=== PATIENT | male | born 1945 | race Caucasian/White ===

== ENCOUNTER 2017-08-21 13:18 | Inpatient (IN) | payer MEDICARE, BC ==
[~2017-08-21] VITALS: Ht 182.9 cm; Wt 74.4 kg
--- NOTE | 2017-08-21 13:22 | Emergency Room Report ---
History of Present Illness General Chief Complaint: Dizziness Source: Patient (Eddy Rowe) Present Illness HPI Patient is a 71-year-old male presented after increased generalized weakness and lightheadedness. Patient had recent hip replacement by Dr. Hernandez at [facility]. The procedures approximately 6 days ago. Patient was having increased generalized weakness as well as lightheadedness. This is worse with upright position.. Patient had been taking increased amounts of pain medications. Patient was noted to have increased dark stools. Prior history of gastric bypass as well as ulcerative colitis. He had recent endoscopy (Eddy Rowe) Allergies: Coded Allergies: DICLOXACILLIN (Verified Allergy, Unknown, 08/21/17) Gluten Flour (Verified Allergy, Unknown, 08/21/17) LACTOSE (Verified Allergy, Unknown, 08/21/17) Patient History Past Medical History: see triage record Reviewed Nursing Documentation: PMH: Agreed, PSxH: Agreed (Eddy Rowe) Nursing Documentation-PMH Hx Diabetes: Yes Hx Cancer: Yes - Prostate (Eddy Rowe) Review of Systems All Other Systems: negative except mentioned in HPI (Eddy Rowe) Physical Exam Sp02 EP Interpretation: reviewed, normal General Appearance: normal inspection, alert Head: atraumatic Eyes: bilateral eye conjunctivae pale ENT: normal ENT inspection, hearing grossly normal, normal voice Neck: normal inspection, full range of motion, supple, no bony tend Respiratory: normal inspection, lungs clear, normal breath sounds, no respiratory distress, no retraction, no wheezing Cardiovascular #1: regular rate, rhythm, no edema, JVD Gastrointestinal: normal inspection, normal bowel sounds, non tender, soft, no guarding, no hernia Rectal: heme positive stool - black stool Genitourinary: no CVA tenderness Musculoskeletal: back normal, decreased range of motion Neurologic: normal inspection, alert, oriented x3, responsive, 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 Not hypoxic. PLAN: IV access, labs, blood transfusion, GI consult Anticipate admission to Tele vs. JAKE CC time also includes review of labs, review of EMR, discussion with family and paperwork from SNF, d/w hospitalist CC could include dosing of pressors, additional Abx CC time does not include procedures (Malu Fall M.D.) Medical Decision Making Diagnostic Impression: Primary Impression: Upper GI bleed Additional Impressions: Dizziness Severe anemia S/P hip replacement History of prostate cancer History of gastric bypass ER Course Patient presented for generalized weakness. Differential diagnosis included was not limited to anemia, urinary tract infection, electrolyte abnormality, hypothyroidism, myocardial infarction, myasthenia gravis, dehydration, among others. Because of complexity of patient's case laboratory testing and imaging studies were ordered. EKG interpreted by me showed normal sinus rhythm without acute ST or T wave changes. The patient was noted to have skin pallor. He was noted to have guaiac positive black stool. Initial hemoglobin was 5.2. The patient was consented for blood. The patient's case was discussed with his primary care physician. Patient was endorsed to Dr. Fall for further management and final disposition. Labs Test 08/21/17 14:35 08/22/17 04:00 Differential Total Cells Counted 100 Neutrophils % (Manual) 84 % (45-75) Lymphocytes % (Manual) 12 % (20-45) Monocytes % (Manual) 3 % (1-10) Eosinophils % (Manual) 0 % (0-3) Basophils % (Manual) 0 % (0-2) Band Neutrophils 1 % (0-8) Platelet Estimate Increased Platelet Morphology Normal Polychromasia 1+ Hypochromasia 3+ Anisocytosis 2+ Microcytosis 2+ Prothrombin Time 10.3 SEC (9.30-11.50) Prothromb Time International Ratio 1.0 (0.9-1.1) Activated Partial Thromboplast Time 21 SEC (23-33) Urine Color Pale yellow Urine Appearance Clear Urine pH 7 (4.5-8.0) Urine Specific [place] 1.010 (1.005-1.035) Urine Protein Negative (NEGATIVE) Urine Glucose (UA) 4+ (NEGATIVE) Urine Ketones 2+ (NEGATIVE) Urine Occult Blood Negative (NEGATIVE) Urine Nitrite Negative (NEGATIVE) Urine Bilirubin Negative (NEGATIVE) Urine Urobilinogen Normal MG/DL (0.0-1.0) Urine Leukocyte Esterase Negative (NEGATIVE) Sodium Level 137 MMOL/L (136-145) Potassium Level 4.5 MMOL/L (3.5-5.1) Chloride Level 101 MMOL/L (98-107) Carbon Dioxide Level 27 MMOL/L (21-32) Anion Gap 9 mmol/L (5-15) Blood Urea Nitrogen 44 mg/dL (7-18) Creatinine 1.1 MG/DL (0.55-1.30) Estimat Glomerular Filtration Rate mL/min (>60) Glucose Level 179 MG/DL (74-106) Calcium Level 8.7 MG/DL (8.5-10.1) Total Bilirubin 0.3 MG/DL (0.2-1.0) Aspartate Amino Transf (AST/SGOT) 13 U/L (15-37) Alanine Aminotransferase (ALT/SGPT) 28 U/L (12-78) Alkaline Phosphatase 55 U/L (46-116) Troponin I 0.000 ng/mL (0.000-0.056) Pro-B-Type Natriuretic Peptide 218 pg/mL (0-125) Total Protein 6.2 G/DL (6.4-8.2) Albumin 3.0 G/DL (3.4-5.0) Globulin 3.2 g/dL Albumin/Globulin Ratio 0.9 (1.0-2.7) Lipase 118 U/L (73-393) White Blood Count 7.0 K/UL (4.8-10.8) Red Blood Count 2.70 M/UL (4.70-6.10) Hemoglobin 8.2 G/DL (14.2-18.0) Hematocrit 24.5 % (42.0-52.0) Mean Corpuscular Volume 91 FL (80-99) Mean Corpuscular Hemoglobin 30.4 PG (27.0-31.0) Mean Corpuscular Hemoglobin Concent 33.6 G/DL (32.0-36.0) Red Cell Distribution Width 14.3 % (11.6-14.8) Platelet Count 379 K/UL (150-450) Mean Platelet Volume 5.7 FL (6.5-10.1) Neutrophils (%) (Auto) 60.5 % (45.0-75.0) Lymphocytes (%) (Auto) 26.3 % (20.0-45.0) Monocytes (%) (Auto) 11.0 % (1.0-10.0) Eosinophils (%) (Auto) 1.4 % (0.0-3.0) Basophils (%) (Auto) 0.9 % (0.0-2.0) (Eddy Rowe) ER Course 71-year-old male, recent surgery to right hip, 2 days of dizziness, generalized weakness, inability to walk DDX: Vasovagal vs. orthostatic / hypovolemic/dehydration vs. cardiac arrhythmia (SVT , Afib) vs. cardiac (, ACS) vs. PE vs. metabolic versus infectious, UTI pneumonia versus medication overuse (Vicodin) Plan: bgm, cbc, bmp, ekg, cxr ER course: Patient has remained HD stable during ED stay hgb 5.5 noted, transfused 2 units prbcs in ED protonix given Dr Roldan from GI made aware of patient Disposition: Patient requires admission to telemetry. Patient requires further workup of syncopal episode, further lab testing, serial troponins, cardiac monitoring D/W hospitalist Dr Morales (covering for Dr Cintron), had accepted patient for admission Please note that this Emergency Department Report was dictated using [employer]wikwire[employer] nurse specialist technology software, occasionally this can lead to erroneous entry secondary to interpretation by the dictation equipment EKG Diagnostic Results EP Interpretation: Yes Rate: normal Rhythm: NSR ST Segments: No acute changes, no WPW, Brugada, QT prolongation ASA given to patient: No Rhythm Strip EP Interpretation: Yes Rate: 70 Rhythm: NSR, no PVCs, no ectopy Chest X-ray CXR: Ordered: Yes 1 view Indication: Weakness EP interpretation: Yes Interpretation: No consolidation, no effusion, no PTX, pacemaker noted to left chest Impression: No acute disease Electronically signed by Malu Fall MD Laboratory Tests Test 08/21/17 14:35 White Blood Count 9.9 K/UL (4.8-10.8) Red Blood Count 1.83 M/UL (4.70-6.10) L Hemoglobin 5.5 G/DL (14.2-18.0) *L Hematocrit 17.7 % (42.0-52.0) L Mean Corpuscular Volume 97 FL (80-99) Mean Corpuscular Hemoglobin 30.2 PG (27.0-31.0) Mean Corpuscular Hemoglobin Concent 31.2 G/DL (32.0-36.0) L Red Cell Distribution Width 14.0 % (11.6-14.8) Platelet Count 469 K/UL (150-450) H Mean Platelet Volume 5.8 FL (6.5-10.1) L Neutrophils (%) (Auto) % (45.0-75.0) Lymphocytes (%) (Auto) % (20.0-45.0) Monocytes (%) (Auto) % (1.0-10.0) Eosinophils (%) (Auto) % (0.0-3.0) Basophils (%) (Auto) % (0.0-2.0) Differential Total Cells Counted 100 Neutrophils % (Manual) 84 % (45-75) H Lymphocytes % (Manual) 12 % (20-45) L Monocytes % (Manual) 3 % (1-10) Eosinophils % (Manual) 0 % (0-3) Basophils % (Manual) 0 % (0-2) Band Neutrophils 1 % (0-8) Platelet Estimate Increased H Platelet Morphology Normal Polychromasia 1+ Hypochromasia 3+ Anisocytosis 2+ Microcytosis 2+ Prothrombin Time 10.3 SEC (9.30-11.50) Prothrombin Time INR 1.0 (0.9-1.1) PTT 21 SEC (23-33) L Urine Color Pale yellow Urine Appearance Clear Urine pH 7 (4.5-8.0) Urine Specific [place] 1.010 (1.005-1.035) Urine Protein Negative (NEGATIVE) Urine Glucose (UA) 4+ (NEGATIVE) H Urine Ketones 2+ (NEGATIVE) H Urine Occult Blood Negative (NEGATIVE) Urine Nitrite Negative (NEGATIVE) Urine Bilirubin Negative (NEGATIVE) Urine Urobilinogen Normal MG/DL (0.0-1.0) Urine Leukocyte Esterase Negative (NEGATIVE) Sodium Level 137 MMOL/L (136-145) Potassium Level 4.5 MMOL/L (3.5-5.1) Chloride Level 101 MMOL/L (98-107) Carbon Dioxide Level 27 MMOL/L (21-32) Anion Gap 9 mmol/L (5-15) Blood Urea Nitrogen 44 mg/dL (7-18) H Creatinine 1.1 MG/DL (0.55-1.30) Estimate Glomerular Filtration Rate mL/min (>60) Glucose Level 179 MG/DL (74-106) H Calcium Level 8.7 MG/DL (8.5-10.1) Total Bilirubin 0.3 MG/DL (0.2-1.0) Aspartate Amino Transferase (AST) 13 U/L (15-37) L Alanine Aminotransferase (ALT) 28 U/L (12-78) Alkaline Phosphatase 55 U/L (46-116) Troponin I 0.000 ng/mL (0.000-0.056) Pro-B-Type Natriuretic Peptide 218 pg/mL (0-125) H Total Protein 6.2 G/DL (6.4-8.2) L Albumin 3.0 G/DL (3.4-5.0) L Globulin 3.2 g/dL Albumin/Globulin Ratio 0.9 (1.0-2.7) L Lipase 118 U/L (73-393) (Malu Fall M.D.) EKG Diagnostic Results Rate: normal Rhythm: NSR ST Segments: no acute changes (Eddy Rowe) Status: unchanged (Eddy Rowe) Disposition: ADMITTED INPATIENT Condition: Serious Eddy Rowe Aug 21, 2017 13:22 Malu Fall M.D. Aug 21, 2017 14:49
[2017-08-21 14:49] VITALS: BP 134/63
[2017-08-21 14:49] LABS: APPEARANCE,URINE CLEAR; KETONES,URINE 2+ (NEGATIVE); LEUKOCYTE ESTERASE ,URINE NEGATIVE (NEGATIVE); NITRITE,URINE NEGATIVE (NEGATIVE); PH,URINE 7 (4.5-8.0); PROTEIN,URINE NEGATIVE (NEGATIVE); UROBILINOGEN,URINE NORMAL MG/DL (0.0-1.0)
[2017-08-21 14:53] LABS: MEAN CORPUSCULAR HEMOGLOBIN 30.2 PG (27.0-31.0); MEAN CORPUSCULAR HGB CONC 31.2 G/DL (32.0-36.0); MEAN CORPUSCULAR VOLUME 97 FL (80-99); MEAN PLATELET VOLUME 5.8 FL (6.5-10.1); PLATELET COUNT 469 K/UL (150-450); RED BLOOD COUNT 1.83 M/UL (4.70-6.10); WHITE BLOOD COUNT 9.9 K/UL (4.8-10.8)
[2017-08-21 15:07] LABS: ANION GAP 9 mmol/L (5-15); CALCIUM 8.7 MG/DL (8.5-10.1); CARBON DIOXIDE 27 MMOL/L (21-32); CHLORIDE 101 MMOL/L (98-107); CREATININE 1.1 MG/DL (0.55-1.30); POTASSIUM 4.5 MMOL/L (3.5-5.1); SODIUM 137 MMOL/L (136-145)
[2017-08-21 15:08] LABS: PROTHROMBIN TIME 10.3 SEC (9.30-11.50)
[2017-08-21 15:11] LABS: ALANINE AMINOTRANSFERASE 28 U/L (12-78); ALBUMIN/GLOBULIN RATIO 0.9 (1.0-2.7); ASPARTATE AMINO TRANSFERASE 13 U/L (15-37); TOTAL PROTEIN 6.2 G/DL (6.4-8.2)
[2017-08-21 15:32] LABS: BAND NEUTROPHILS % (MANUAL) 1 % (0-8); LYMPHOCYTES % (MANUAL) 12 % (20-45); NEUTROPHILS % (MANUAL) 84 % (45-75); TOTAL CELLS COUNTED 100
[2017-08-21 15:34] LABS: ANISOCYTOSIS 2+; BASOPHILS % (MANUAL) 0 % (0-2); EOSINOPHILS % (MANUAL) 0 % (0-3); HYPOCHROMASIA 3+; MICROCYTES 2+; PLATELET ESTIMATE INCREASED; PLATELET MORPHOLOGY NORMAL; POLYCHROMASIA 1+
[2017-08-21] MEDS ORDERED: Pantoprazole Inj IVP ONE (16:00)
[2017-08-21] MEDS ORDERED: AMIODARONE HCL200 MG ORAL (17:59)
[2017-08-21] MEDS ORDERED: TRAMADOL HCL50 MG ORAL (17:59)
[2017-08-21] MEDS ORDERED: METFORMIN HCL850 M1 ORAL (17:59)
[2017-08-21] MEDS ORDERED: APRISO0.375 GM PO (18:07)
[2017-08-21] MEDS ORDERED: JARDIANCE PO (18:07)
[2017-08-21] MEDS ORDERED: ZOLPIDEM TARTRA10 MG ORAL (18:07)
[2017-08-21] MEDS ORDERED: TERBINAFINE HC250 MG PO (18:09)
[2017-08-21] MEDS ORDERED: BUPROPION HCL75 MG PO (18:09)
[2017-08-21] MEDS ORDERED: RESTASIS1 EACH BOTH EYES (18:15)
[2017-08-21] MEDS ORDERED: ECONAZOLE NITRA30 GM TP (18:15)
[2017-08-21] MEDS ORDERED: JUBLIA4 ML TP (18:15)
[2017-08-21] MEDS ORDERED: GERI-HYDROLAC140 GM TP (18:15)
[2017-08-21] MEDS ORDERED: BEPREVE10 ML BOTH EYES (18:19)
[2017-08-21] MEDS ORDERED: ALREX5 ML BOTH EYES (18:19)
[2017-08-21] MEDS ORDERED: JARDIANCE 25 MG TAB PO (18:22)
[2017-08-21] MEDS ORDERED: ASPIR 8181 MG ORAL (18:29)
[2017-08-21] MEDS ORDERED: CALCIUM500 M2 PO (18:29)
[2017-08-21] MEDS ORDERED: FORMULA TP (18:29)
[2017-08-21] MEDS ORDERED: ANDROGEL75 G2 TD (18:32)
[2017-08-21] MEDS ORDERED: BIOTIN5000 MCG PO (18:34)
[2017-08-21 19:37] VITALS: BP 113/60
[2017-08-21 20:45] VITALS: BP 112/58
--- NOTE | 2017-08-21 20:45 | General Progress Note ---
Assessment/Plan Assessment/Plan Assessment - Symptomatic UGIB - Anemia - d/c H&H form [facility] = 8/26.3 - UC, on mesalamine - h/o transient a fib - resolved with Amio - s/p CHUCHO gastric bypass Recommendations - continue Mesalamine for UC - transfuse PRN - NPO - PPI - follow CBC - d/c ASA as indications unclear - EGD in am Subjective Allergies: Coded Allergies: DICLOXACILLIN (Verified Allergy, Unknown, 08/21/17) Gluten Flour (Verified Allergy, Unknown, 08/21/17) LACTOSE (Verified Allergy, Unknown, 08/21/17) Objective Last 24 Hour Vital Signs Date Time Temp Pulse Resp B/P (MAP) Pulse Ox O2 Delivery O2 Flow Rate FiO2 08/21/17 19:37 99.7 81 17 113/60 97 Room Air 08/21/17 19:10 99.1 81 16 08/21/17 16:20 98.6 81 18 08/21/17 14:49 87 24 134/63 100 Room Air 08/21/17 13:13 97.5 80 16 125/90 100 Room Air Intake and Output 08/21/17 08/22/17 19:00 07:00 Intake Total 500 ml Balance 500 ml Intake Blood Product 500 ml # Voids 1 Laboratory Tests 08/21/17 14:35: White Blood Count 9.9, Red Blood Count 1.83L, Hemoglobin 5.5*L, Hematocrit 17.7L , Mean Corpuscular Volume 97, Mean Corpuscular Hemoglobin 30.2, Mean Corpuscular Hemoglobin Concent 31.2L, Red Cell Distribution Width 14.0, Platelet Count 469H, Mean Platelet Volume 5.8L, Neutrophils (%) (Auto) , Lymphocytes (%) (Auto) , Monocytes (%) (Auto) , Eosinophils (%) (Auto) , Basophils (%) (Auto) , Differential Total Cells Counted 100, Neutrophils % ( Manual) 84H, Lymphocytes % (Manual) 12L, Monocytes % (Manual) 3, Eosinophils % ( Manual) 0, Basophils % (Manual) 0, Band Neutrophils 1, Platelet Estimate IncreasedH, Platelet Morphology Normal, Polychromasia 1+, Hypochromasia 3+, Anisocytosis 2+, Microcytosis 2+, Prothrombin Time 10.3, Prothromb Time International Ratio 1.0, Activated Partial Thromboplast Time 21L, Urine Color Pale yellow, Urine Appearance Clear, Urine pH 7, Urine Specific [place] 1.010, Urine Protein Negative, Urine Glucose (UA) 4+H, Urine Ketones 2+H, Urine Occult Blood Negative, Urine Nitrite Negative, Urine Bilirubin Negative, Urine Urobilinogen Normal, Urine Leukocyte Esterase Negative, Sodium Level 137, Potassium Level 4.5, Chloride Level 101, Carbon Dioxide Level 27, Anion Gap 9, Blood Urea Nitrogen 44H, Creatinine 1.1, Estimat Glomerular Filtration Rate , Glucose Level 179H, Calcium Level 8.7, Total Bilirubin 0.3, Aspartate Amino Transf (AST/SGOT) 13L, Alanine Aminotransferase (ALT/SGPT) 28, Alkaline Phosphatase 55, Troponin I 0.000, Pro-B-Type Natriuretic Peptide 218H, Total Protein 6.2L, Albumin 3.0L, Globulin 3.2, Albumin/Globulin Ratio 0.9L, Lipase 118 Height (Feet): 6 Weight (Pounds): 160 IRVIN CHAUDHARI Aug 21, 2017 20:45
[2017-08-21 21:00] VITALS: BP 130/63
[2017-08-21] MEDS: D5 1/2NS 1,000 ML IV SCH (21:39)
[2017-08-21 23:53] LABS: EOSINOPHILS % (AUTO) 0.8 % (0.0-3.0); LYMPHOCYTES % (AUTO) 25.5 % (20.0-45.0); MEAN CORPUSCULAR HEMOGLOBIN 30.3 PG (27.0-31.0); MEAN CORPUSCULAR HGB CONC 33.1 G/DL (32.0-36.0); MEAN CORPUSCULAR VOLUME 92 FL (80-99); MEAN PLATELET VOLUME 5.9 FL (6.5-10.1); NEUTROPHILS % (AUTO) 62.6 % (45.0-75.0); PLATELET COUNT 383 K/UL (150-450); RED BLOOD COUNT 2.77 M/UL (4.70-6.10); RED CELL DISTRIBUTION WIDTH 14.9 % (11.6-14.8); WHITE BLOOD COUNT 8.1 K/UL (4.8-10.8)
[2017-08-22] VITALS (9 sets, daily range): BP systolic 101–117; BP diastolic 55–82
[2017-08-22] MEDS ORDERED: traMADol 50mg tab ORAL PRN
[2017-08-22 05:21] LABS: BASOPHILS % (AUTO) 0.9 % (0.0-2.0); EOSINOPHILS % (AUTO) 1.4 % (0.0-3.0); LYMPHOCYTES % (AUTO) 26.3 % (20.0-45.0); MEAN CORPUSCULAR HEMOGLOBIN 30.4 PG (27.0-31.0); MEAN CORPUSCULAR HGB CONC 33.6 G/DL (32.0-36.0); MEAN CORPUSCULAR VOLUME 91 FL (80-99); MEAN PLATELET VOLUME 5.7 FL (6.5-10.1); NEUTROPHILS % (AUTO) 60.5 % (45.0-75.0); PLATELET COUNT 379 K/UL (150-450); RED CELL DISTRIBUTION WIDTH 14.3 % (11.6-14.8)
--- NOTE | 2017-08-22 05:40 | Anethesia Preoperative Eval ---
Anesthesia Pre-op PMH/ROS General Date of Evaluation: Aug 22, 2017 Time of Evaluation: 05:38 Anesthesiologist: tiffanie ASA Score: ASA 3 Mallampati Score Class I : Soft palate, uvula, fauces, pillars visible Class II: Soft palate, uvula, fauces visible Class III: Soft palate, base of uvula visible Class IV: Only hard plate visible Mallampati Classification: Class II Surgeon: jerry Diagnosis: ugib Surgical Procedure: egd Anesthesia History: none Social History: smoking - nonsmoker Family History: no anesthesia problems Allergies: Coded Allergies: DICLOXACILLIN (Verified Allergy, Unknown, 08/21/17) Gluten Flour (Verified Allergy, Unknown, 08/21/17) LACTOSE (Verified Allergy, Unknown, 08/21/17) Medications: see eMAR Past Medical History Cardiovascular: Reports: arrhythmia Gastrointestinal/Genitourinary: Reports: other - ugib, gastric bypass Hematology/Immune: Reports: anemia Musculoskeletal/Integumentary: Reports: other - hip replacement Anesthesia Pre-op Phys. Exam Physician Exam Last Vital Signs Date Time Temp Pulse Resp B/P (MAP) Pulse Ox O2 Delivery O2 Flow Rate FiO2 08/22/17 00:00 73 08/21/17 21:00 98.6 18 130/63 97 Room Air Constitutional: NAD Neurologic: CN 2-12 intact Cardiovascular: RRR Respiratory: CTA Gastrointestinal: S/NT/ND Airway Exam Mallampati Score: Class II MO: full Neck: supple TMD: 2fb ROM: limited Anesthesia Pre-op A/P Labs Hematology Test 08/21/17 14:35 08/21/17 23:30 08/22/17 04:00 White Blood Count 9.9 K/UL (4.8-10.8) 8.1 K/UL (4.8-10.8) 7.0 K/UL (4.8-10.8) Red Blood Count 1.83 M/UL (4.70-6.10) L 2.77 M/UL (4.70-6.10) L 2.70 M/UL (4.70-6.10) L Hemoglobin 5.5 G/DL (14.2-18.0) *L 8.4 G/DL (14.2-18.0) #L 8.2 G/DL (14.2-18.0) L Hematocrit 17.7 % (42.0-52.0) L 25.4 % (42.0-52.0) #L 24.5 % (42.0-52.0) L Mean Corpuscular Volume 97 FL (80-99) 92 FL (80-99) 91 FL (80-99) Mean Corpuscular Hemoglobin 30.2 PG (27.0-31.0) 30.3 PG (27.0-31.0) 30.4 PG (27.0-31.0) Mean Corpuscular Hemoglobin Concent 31.2 G/DL (32.0-36.0) L 33.1 G/DL (32.0-36.0) 33.6 G/DL (32.0-36.0) Red Cell Distribution Width 14.0 % (11.6-14.8) 14.9 % (11.6-14.8) H 14.3 % (11.6-14.8) Platelet Count 469 K/UL (150-450) H 383 K/UL (150-450) 379 K/UL (150-450) Mean Platelet Volume 5.8 FL (6.5-10.1) L 5.9 FL (6.5-10.1) L 5.7 FL (6.5-10.1) L Neutrophils (%) (Auto) % (45.0-75.0) 62.6 % (45.0-75.0) 60.5 % (45.0-75.0) Lymphocytes (%) (Auto) % (20.0-45.0) 25.5 % (20.0-45.0) 26.3 % (20.0-45.0) Monocytes (%) (Auto) % (1.0-10.0) 10.0 % (1.0-10.0) 11.0 % (1.0-10.0) H Eosinophils (%) (Auto) % (0.0-3.0) 0.8 % (0.0-3.0) 1.4 % (0.0-3.0) Basophils (%) (Auto) % (0.0-2.0) 1.0 % (0.0-2.0) 0.9 % (0.0-2.0) Differential Total Cells Counted 100 Neutrophils % (Manual) 84 % (45-75) H Lymphocytes % (Manual) 12 % (20-45) L Monocytes % (Manual) 3 % (1-10) Eosinophils % (Manual) 0 % (0-3) Basophils % (Manual) 0 % (0-2) Band Neutrophils 1 % (0-8) Platelet Estimate Increased H Platelet Morphology Normal Polychromasia 1+ Hypochromasia 3+ Anisocytosis 2+ Microcytosis 2+ Coagulation Test 08/21/17 14:35 Prothrombin Time 10.3 SEC (9.30-11.50) Prothromb Time International Ratio 1.0 (0.9-1.1) Activated Partial Thromboplast Time 21 SEC (23-33) L Chemistry Test 08/21/17 14:35 Sodium Level 137 MMOL/L (136-145) Potassium Level 4.5 MMOL/L (3.5-5.1) Chloride Level 101 MMOL/L (98-107) Carbon Dioxide Level 27 MMOL/L (21-32) Anion Gap 9 mmol/L (5-15) Blood Urea Nitrogen 44 mg/dL (7-18) H Creatinine 1.1 MG/DL (0.55-1.30) Estimat Glomerular Filtration Rate mL/min (>60) Glucose Level 179 MG/DL (74-106) H Calcium Level 8.7 MG/DL (8.5-10.1) Total Bilirubin 0.3 MG/DL (0.2-1.0) Aspartate Amino Transf (AST/SGOT) 13 U/L (15-37) L Alanine Aminotransferase (ALT/SGPT) 28 U/L (12-78) Alkaline Phosphatase 55 U/L (46-116) Troponin I 0.000 ng/mL (0.000-0.056) Pro-B-Type Natriuretic Peptide 218 pg/mL (0-125) H Total Protein 6.2 G/DL (6.4-8.2) L Albumin 3.0 G/DL (3.4-5.0) L Globulin 3.2 g/dL Albumin/Globulin Ratio 0.9 (1.0-2.7) L Lipase 118 U/L (73-393) Risk Assessment & Plan Assessment: asa3 Plan: mac Status Change Before Surgery: No Pre-Antibiotics Drug: SHARONDA Keen Aug 22, 2017 05:40
[2017-08-22] MEDS ORDERED: Midazolam 2mg/2ml Inj IVP PRN (05:45)
[2017-08-22] MEDS ORDERED: fentaNYL 100 mcg/2 mL IV PRN (05:45)
[2017-08-22] MEDS ORDERED: Atropine Inj 1mg/10ml Syr IV PRN (05:45)
[2017-08-22] MEDS ORDERED: DiphenhydrAMINE 50mg/ml Inj IVP PRN (05:45)
--- NOTE | 2017-08-22 06:00 | Consultation ---
DATE OF CONSULTATION: 08/21/2017 GASTROENTEROLOGY CONSULTATION REPORT CHIEF COMPLAINT: I was asked to see this patient for evaluation of gastrointestinal bleeding. HISTORY OF PRESENT ILLNESS: The patient is a 71-year-old white man who I was called by the emergency room physician to see for gastrointestinal bleeding. The patient has noted melena since yesterday and today he felt dizzy and lightheaded and came to emergency room where he was found to be profoundly anemic. The patient has taken aspirin for the past 5 days or so on a daily basis. He has done this for recent discovered atrial fibrillation, although the exact recommendation on this patient is unclear to me. The patient has had a history of Denny-en-Y gastric bypass surgery, which was completed in 2009. Recently during hip operation, the patient was found to have transient atrial fibrillation, which resolved. The patient also has been recently diagnosed with some type of colitis and he was placed on Apriso one tablet four times a day. However, the extent of the colitis is unclear. He did have a history of prostate cancer for which he underwent both radiation and also pellets and he said subsequent to this he developed colitis. PAST MEDICAL HISTORY: History of morbid obesity, status post Denny-en-Y gastric bypass surgery, [id number] diabetes mellitus, history of diminutive colon polyp, history of colitis, hypertension, lumbar disc disease, transient atrial fibrillation, obstructive sleep apnea, history of prostate cancer, status post hemorrhoidectomy, status post appendectomy, status post tonsillectomy, and status post right total knee replacement. ALLERGIES: Dicloxacillin. SOCIAL HISTORY: The patient does not smoke or drink alcohol. FAMILY HISTORY: Noncontributory. REVIEW OF SYSTEMS: Otherwise negative. PHYSICAL EXAMINATION: GENERAL: A pleasant white man, seen in emergency room. HEENT: Normocephalic and atraumatic. Sclerae anicteric. Oropharynx clear. NECK: Supple. CHEST: Clear to auscultation. CARDIOVASCULAR: Regular rate. ABDOMEN: Soft with good bowel sounds. There is no organomegaly. EXTREMITIES: Revealed no edema. LABORATORY DATA: Noted. ASSESSMENT: This patient presents with acute gastrointestinal bleeding with drop in hematocrit. This is presumed to be due to upper gastrointestinal bleeding, which in turn may have been triggered by the patient's self use of aspirin. The patient states he does take iron on a regular basis and therefore some of the darkness from his stools could be from iron. In addition, review of his laboratories from [facility] showed that his discharge hemoglobin and hematocrit were 8 and 26.3 respectively, and therefore, he actually does not have a very significant drop compared to that baseline. Nonetheless, given his symptoms, I would transfuse the patient. The patient will be put on regular proton pump inhibitor, discontinue aspirin, and perform an endoscopy tomorrow to evaluate his upper gastrointestinal tract. Indications, risks, alternatives, and possible complications explained to the patient and informed consent was obtained. RECOMMENDATIONS: 1. NPO except medications. 2. Proton pump inhibitor. 3. IV fluids. 4. Hold aspirin. 5. Endoscopy tomorrow. Thank you for asking me to participate in the care of this patient. Cornelio Roldan M.D. DR: Lexi JOB#: [id number] CC: GARTH
[2017-08-22] MEDS: NovoLOG Insulin Flexpen SUBQ SCH ×4 (06:30→20:42)
[2017-08-22] MEDS: D5 1/2NS 1,000 ML IV SCH ×2 (06:51→17:55)
[2017-08-22] MEDS ORDERED: NS 500ML IV ONE (07:15)
--- NOTE | 2017-08-22 07:23 | General Progress Note ---
Assessment/Plan Assessment/Plan Assessment - Symptomatic UGIB - Anemia - d/c H&H form [facility] = 8/26.3 - constipation - UC, on mesalamine - h/o transient a fib - resolved with Amio - s/p CHUCHO gastric bypass Recommendations - continue Mesalamine for UC - laxative after colonoscopy - transfuse PRN - NPO - PPI - follow CBC - d/c ASA as indications unclear - EGD today Subjective Allergies: Coded Allergies: DICLOXACILLIN (Verified Allergy, Unknown, 08/21/17) Gluten Flour (Verified Allergy, Unknown, 08/21/17) LACTOSE (Verified Allergy, Unknown, 08/21/17) Subjective feels OK constipated from [place] wants laxative NPO for EGD Objective Last 24 Hour Vital Signs Date Time Temp Pulse Resp B/P (MAP) Pulse Ox O2 Delivery O2 Flow Rate FiO2 08/22/17 04:00 79 08/22/17 04:00 98.6 94 20 104/65 97 Room Air 08/22/17 00:00 73 08/21/17 21:00 98.6 78 18 130/63 97 Room Air 08/21/17 20:45 86 18 112/58 98 Room Air 08/21/17 20:45 99.7 86 18 112/58 98 Room Air 08/21/17 19:37 99.7 81 17 113/60 97 Room Air 08/21/17 19:10 99.1 81 16 08/21/17 16:20 98.6 81 18 08/21/17 14:49 87 24 134/63 100 Room Air 08/21/17 13:13 97.5 80 16 125/90 100 Room Air Laboratory Tests 08/21/17 14:35: White Blood Count 9.9, Red Blood Count 1.83L, Hemoglobin 5.5*L, Hematocrit 17.7L , Mean Corpuscular Volume 97, Mean Corpuscular Hemoglobin 30.2, Mean Corpuscular Hemoglobin Concent 31.2L, Red Cell Distribution Width 14.0, Platelet Count 469H, Mean Platelet Volume 5.8L, Neutrophils (%) (Auto) , Lymphocytes (%) (Auto) , Monocytes (%) (Auto) , Eosinophils (%) (Auto) , Basophils (%) (Auto) , Differential Total Cells Counted 100, Neutrophils % ( Manual) 84H, Lymphocytes % (Manual) 12L, Monocytes % (Manual) 3, Eosinophils % ( Manual) 0, Basophils % (Manual) 0, Band Neutrophils 1, Platelet Estimate IncreasedH, Platelet Morphology Normal, Polychromasia 1+, Hypochromasia 3+, Anisocytosis 2+, Microcytosis 2+, Prothrombin Time 10.3, Prothromb Time International Ratio 1.0, Activated Partial Thromboplast Time 21L, Urine Color Pale yellow, Urine Appearance Clear, Urine pH 7, Urine Specific [place] 1.010, Urine Protein Negative, Urine Glucose (UA) 4+H, Urine Ketones 2+H, Urine Occult Blood Negative, Urine Nitrite Negative, Urine Bilirubin Negative, Urine Urobilinogen Normal, Urine Leukocyte Esterase Negative, Sodium Level 137, Potassium Level 4.5, Chloride Level 101, Carbon Dioxide Level 27, Anion Gap 9, Blood Urea Nitrogen 44H, Creatinine 1.1, Estimat Glomerular Filtration Rate , Glucose Level 179H, Calcium Level 8.7, Total Bilirubin 0.3, Aspartate Amino Transf (AST/SGOT) 13L, Alanine Aminotransferase (ALT/SGPT) 28, Alkaline Phosphatase 55, Troponin I 0.000, Pro-B-Type Natriuretic Peptide 218H, Total Protein 6.2L, Albumin 3.0L, Globulin 3.2, Albumin/Globulin Ratio 0.9L, Lipase 118 08/21/17 23:30: White Blood Count 8.1, Red Blood Count 2.77L, Hemoglobin 8.4#L, Hematocrit 25.4# L, Mean Corpuscular Volume 92, Mean Corpuscular Hemoglobin 30.3, Mean Corpuscular Hemoglobin Concent 33.1, Red Cell Distribution Width 14.9H, Platelet Count 383, Mean Platelet Volume 5.9L, Neutrophils (%) (Auto) 62.6, Lymphocytes (%) (Auto) 25.5, Monocytes (%) (Auto) 10.0, Eosinophils (%) (Auto) 0.8, Basophils (%) (Auto) 1.0 08/22/17 04:00: White Blood Count 7.0, Red Blood Count 2.70L, Hemoglobin 8.2L, Hematocrit 24.5L , Mean Corpuscular Volume 91, Mean Corpuscular Hemoglobin 30.4, Mean Corpuscular Hemoglobin Concent 33.6, Red Cell Distribution Width 14.3, Platelet Count 379, Mean Platelet Volume 5.7L, Neutrophils (%) (Auto) 60.5, Lymphocytes ( %) (Auto) 26.3, Monocytes (%) (Auto) 11.0H, Eosinophils (%) (Auto) 1.4, Basophils (%) (Auto) 0.9 Height (Feet): 6 Height (Inches): 0.00 Weight (Pounds): 164 Objective WDWN WM NCAT supple CTA RRR Soft ND NT no edema, (R) hip wound OK non focal IRVIN CHAUDHARI Aug 22, 2017 07:23
[2017-08-22] MEDS ORDERED: Lidocaine 1% MPF 10mg/ml 5ml ONE (07:30)
[2017-08-22] MEDS ORDERED: Propofol 200mg/20ml IV ONE (07:30)
--- NOTE | 2017-08-22 07:35 | Endoscopy Procedure Note ---
Endoscopy Procedure Note Indication for Procedure: UGIB Procedures Performed: EGD Operative Findings/Diagnosis: anastamotic ulcer Specimen: yes Pt Tolerated Procedure Well: Yes Estimated Blood Loss: none Anesthesiologist: Justin Isabel Anesthesia: MAC Medication Given: see anesthesia record Implant(s) used?: No 50 yrs or older w/o bx or poly: Not Applicable 10yrs. F/U not recommended: Not Applicable If not recommended, why?: IRVIN CHAUDHARI Aug 22, 2017 07:35
--- NOTE | 2017-08-22 07:38 | Brief Operative Note ---
Immediate Post Operative Note Operative Note Chief Complaint: UGIB Pre-op Diagnosis: anastamotic ulcer Procedure: EGD/Bx Post-op Diagnosis: anastamotic ulcer Surgeon: jerry Anesthesiologist: Justin purcell Anesthesia: MAC Specimen: yes Complications: none Condition: stable Fluids: see report Estimated Blood Loss: none Drains: none Implant(s) used?: No IRVIN CHAUDHARI Aug 22, 2017 07:38
--- NOTE | 2017-08-22 08:12 | Pre-Procedure Note/Attestation ---
Pre-Procedure Note/Attestation Complete Prior to Procedure Planned Procedure: not applicable Procedure Narrative: egd Indications for Procedure Pre-Operative Diagnosis: anastamotic ulcer Attestation I attest that I discussed the nature of the procedure; its benefits; risks and complications; and alternatives (and the risks and benefits of such alternatives ), prior to the procedure, with the patient (or the patient's legal labor relations representative). I attest that, if there was a reasonable possibility of needing a blood transfusion, the patient (or the patient's legal labor relations representative) was given the [facility] standardized written summary, pursuant to the [place] Blood Safety Act ([place] Health and Safety Code # 1645, as amended). I attest that I re-evaluated the patient just prior to the surgery and that there has been no change in the patient's H&P, except as documented below: IRVIN CHAUDHARI Aug 22, 2017 08:12
--- NOTE | 2017-08-22 08:38 | Immediate Post-Op Evaluation ---
Immediate Post-Op Evalulation Immediate Post-Op Evalulation Procedure: egd Date of Evaluation: Aug 22, 2017 Time of Evaluation: 07:56 IV Fluids: 75ml 0.9ns Blood Products: none Estimated Blood Loss: negligible Blood Pressure Systolic: 104 Blood Pressure Diastolic: 64 Pulse Rate: 75 Respiratory Rate: 18 O2 Sat by Pulse Oximetry: 100 Temperature (Fahrenheit): 98.0 Pain Score (1-10): 0 Nausea: No Vomiting: No Complications none Patient Status: awake, reacts, patent Hydration Status: adequate Drug: SHARONDA Keen Aug 22, 2017 08:38
--- NOTE | 2017-08-22 08:39 | 48 Hour Post Anesthesia Eval ---
Post Anesthesia Evaluation Procedure: egd Date of Evaluation: Aug 22, 2017 Time of Evaluation: 07:58 Blood Pressure Systolic: 111 0: 66 Pulse Rate: 77 Respiratory Rate: 18 Temperature (Fahrenheit): 98.0 O2 Sat by Pulse Oximetry: 99 Airway: patent Nausea: No Vomiting: No Pain Intensity: 0 Hydration Status: adequate Cardiopulmonary Status: stable Mental Status/LOC: patient returned to baseline Post-Anesthesia Complications: none Follow-up care needed: N/A SHARONDA ANTHONY Aug 22, 2017 08:39
[2017-08-22] MEDS: Amiodarone 200mg tab ORAL SCH ×2 (09:00→10:38)
[2017-08-22] MEDS ORDERED: Sorbitol Solution UD 30ml ORAL ONE (09:00)
[2017-08-22] MEDS: Pantoprazole Inj IVP SCH (10:37)
[2017-08-22] MEDS: BuPROPion 75mg Tab ORAL SCH ×3 (10:37→17:45)
[2017-08-22] MEDS: Mesalamine 400mg cap ORAL SCH ×3 (10:38→17:45)
--- NOTE | 2017-08-22 11:06 | Diagnostic Imaging Report ---
Indication: Hip pain Technique: continuous helical imaging in the transaxial plane was performed from the iliac crests to the pubic symphysis with attention to the right hip. Coronal 2-D reformatted images were also generated. Study obtained in a Siemens Sensation [address] total DLP: 546 mGycm CTD/vol: 4.49, 0.25 mGy Comparison: None Findings: There is no evidence of an acute fracture or significant malalignment identified on this examination. There is soft tissue air within the right gluteal region and some air in the right groin and adductor muscles. Patient has a right total hip prosthesis and it is likely that the area is on the basis of recent surgery. If there is no history of recent surgery or intervention/procedure, when should consider possibility of infection and gas forming organism. There is no acute fracture identified. Metallic implants noted in the area of the prostate gland consistent with radiation seeds in prostate CA. Small bilateral hernias containing fat are noted. Arteriovascular calcifications are present. No visualized free fluid or free air. Degenerative changes of both hips and sacroiliac joints with osteophytes, joint space narrowing and subchondral sclerosis/cysts noted. IMPRESSION: No acute fracture or bony injury identified. Soft tissue air about the right gluteal region and hip, which may be on the basis of recent surgery or other procedure. Please correlate clinically. Radioactive seeds within the prostate gland consistent with carcinoma treatment. Atherosclerotic disease Osteoarthritis The CT scanner at [facility] is accredited by the [employer] and the scans are performed using dose optimization techniques as appropriate to a performed exam including Automatic Exposure control.
--- NOTE | 2017-08-22 13:02 | Diagnostic Imaging Report ---
Indication: Dyspnea Comparison: None A single view chest radiograph was obtained. Findings: Cardiomediastinal appearance is within normal limits for age. Pulmonary vascularity is appropriate. The diaphragmatic contour is smooth and costophrenic angles are sharp. No pleural effusions are identified. The bones are osteopenic. Electronic device projected over the left chest wall. Impression: No acute findings
[2017-08-22] MEDS ORDERED: Sorbitol Solution UD 30ml ORAL PRN (15:00)
--- NOTE | 2017-08-22 16:14 | Wound Care Consultation ---
Wound Assessment Wound Assessment #1: Wound Number: 1 Wound Present on Admission: Yes New Wound: No Status Change of Wound: No Wound Location Body Site Modif: mid Wound Location Body Site: other - Sacrococcygeal Wound Type: pressure ulcer Allison Test: Does not Allison Pressure Ulcer Stage: Deep Tissue Injury Wound Thickness: Full Thickness Wound Length: 5.0 Wound Width: 4.5 Wound Depth: utd Wound Drainage Amount: None Wound Drainage Odor: None/Absent Tissue Surrounding Wound: Erythemic Wound General Appearance: Reddened - deep red Wound Assessment #2: Wound Number: 2 Wound Present on Admission: Yes New Wound: No Status Change of Wound: No Wound Location Body Site Modif: left Wound Type: scab - dry scabs Allison Test: Does not Allison Wound Drainage Amount: None Wound Drainage Odor: None/Absent Tissue Surrounding Wound: Intact Wound General Appearance: Asymptomatic Wound Comment #1 Sacrococcygeal DTI pressure ulcer #2 Left elbow dry scabs #3 Surgical in incision on left hip area with intact drg. Pt stated "I don't want any one to open the surgical site. I have an appointment with the surgeon in 7 days". Pt Left a message to the surgeon and ask to call the nurses to give an order for drg change while I was with Pt. RN gisela made aware. Recommendation -Local wound care per protocol -Keep clean and dry -Turn and reposition -Optimize nutrition -Offload both heels -Heel protector on both heels -Low air loss SPR mattress -Assess and f/u accordingly for any changes CRISTIANE NAVA RN Aug 22, 2017 16:14
[2017-08-22] MEDS: Docusate 250mg cap ORAL SCH (17:45)
--- NOTE | 2017-08-22 18:45 | History and Physical Report ---
DATE OF ADMISSION: 08/21/2017 CHIEF COMPLAINT: Fainting and weakness together with melena. HISTORY OF PRESENT ILLNESS: This is a 71-year-old male, who had recent hip surgery at [facility]. The patient noticed severe weakness and he had melena. The patient attributes the melena for to recent start of baby aspirin. PAST MEDICAL HISTORY: 1. Recent start of paroxysmal atrial fibrillation. 2. History of prostatic cancer. 3. 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 4. Ulcerative colitis MEDICATIONS: Amiodarone, ammonium lactate, Biotene, bupropion, calcium carbonate, Restasis drops, mesalamine, testosterone, AndroGel, tramadol p.r.n., and zolpidem p.r.n. ALLERGIES: Dicloxacillin, gluten flour, and lactose. FAMILY HISTORY: Unremarkable. SOCIAL HISTORY: He is nonsmoker and nondrinker. There is no history of illicit drug abuse. REVIEW OF SYSTEMS: HEENT: Hearing and eyesight are normal. ENDOCRINE: No history of diabetes, thyroid or adrenal problems. RESPIRATORY: Denies shortness of breath, cough, or hemoptysis. CARDIOVASCULAR: He had a recent bout of paroxysmal atrial fibrillation. GASTROINTESTINAL: Please refer to past medical history. NEUROLOGICAL: No history of stroke, syncope or Parkinson disease. PHYSICAL EXAMINATION: GENERAL: This is an elderly pleasant male, who is in no acute distress. VITAL SIGNS: Blood pressure 117/64, pulse 96 and regular, respirations 20, and temperature 97.9 degrees. HEENT: The head is normocephalic and atraumatic. Pupils are equal, round, and reactive to light and accommodation consensually. NECK: Supple. Trachea midline. There is no lymphadenopathy or thyromegaly. LUNGS: Clear to auscultation and percussion. HEART: Regular rate and rhythm without rubs, murmurs, or gallops. ABDOMEN: Soft and nontender. Bowel sounds were active. EXTREMITIES: No clubbing, cyanosis, or edema. NEUROLOGICAL: He is alert and oriented x4. Cranial nerves II through XII intact. LABORATORY AND ANCILLARY DATA: On admission, hematocrit 17.7 and today 24.5. Serum chemistry, glucose on admission 179. ASSESSMENT: Severe anemia, most likely due to recent blood loss during orthopedic surgery with superimposed gastrointestinal losses due to ulcerative colitis. PLAN: 1. Check iron stores and if needed replete with IV iron. 2. Ambulate cautiously due to the patient's severe anemia. 3. Continue home medications. Gray Quesada M.D. DR: TERESA JOB#: [id number] CC:
[2017-08-23] VITALS: BP 125/67
[2017-08-23 04:00] VITALS: BP 107/57
[2017-08-23] MEDS: D5 1/2NS 1,000 ML IV SCH (04:01)
[2017-08-23 05:21] LABS: MEAN CORPUSCULAR HEMOGLOBIN 30.7 PG (27.0-31.0); MEAN CORPUSCULAR HGB CONC 33.3 G/DL (32.0-36.0); MEAN CORPUSCULAR VOLUME 92 FL (80-99); MEAN PLATELET VOLUME 5.5 FL (6.5-10.1); PLATELET COUNT 333 K/UL (150-450); RED BLOOD COUNT 2.41 M/UL (4.70-6.10); RED CELL DISTRIBUTION WIDTH 15.1 % (11.6-14.8); WHITE BLOOD COUNT 6.3 K/UL (4.8-10.8)
[2017-08-23 05:45] LABS: ALANINE AMINOTRANSFERASE 27 U/L (12-78); ALBUMIN/GLOBULIN RATIO 0.9 (1.0-2.7); ANION GAP 6 mmol/L (5-15); ASPARTATE AMINO TRANSFERASE 14 U/L (15-37); CALCIUM 8.2 MG/DL (8.5-10.1); CARBON DIOXIDE 29 MMOL/L (21-32); CHLORIDE 106 MMOL/L (98-107); CREATININE 0.9 MG/DL (0.55-1.30); POTASSIUM 3.6 MMOL/L (3.5-5.1); SODIUM 140 MMOL/L (136-145); TOTAL PROTEIN 5.5 G/DL (6.4-8.2)
[2017-08-23 05:52] LABS: HEMOGLOBIN A1C 6.2 % (4.3-6.0)
[2017-08-23 05:59] LABS: IRON 19 ug/dL (50-175); TOTAL IRON BINDING CAPACITY 266 ug/dL (250-450)
[2017-08-23] MEDS: NovoLOG Insulin Flexpen SUBQ SCH ×4 (06:20→21:20)
[2017-08-23 08:00] VITALS: BP 152/78
[2017-08-23] MEDS: Amiodarone 200mg tab ORAL SCH (09:51)
[2017-08-23] MEDS: Docusate 250mg cap ORAL SCH ×2 (09:52→17:53)
[2017-08-23] MEDS: BuPROPion 75mg Tab ORAL SCH ×3 (09:52→17:53)
[2017-08-23] MEDS: Mesalamine 400mg cap ORAL SCH ×3 (09:52→17:54)
[2017-08-23] MEDS: Pantoprazole Inj IVP SCH (09:52)
--- NOTE | 2017-08-23 11:20 | General Progress Note ---
Assessment/Plan Assessment/Plan Severe Anemia multifactorial - For IV Iron Orthosthatic BP changes -use elastic stockings See orders Subjective Allergies: Coded Allergies: DICLOXACILLIN (Verified Allergy, Unknown, 08/21/17) Gluten Flour (Verified Allergy, Unknown, 08/21/17) LACTOSE (Verified Allergy, Unknown, 08/21/17) Subjective Very Anxious Objective Last 24 Hour Vital Signs Date Time Temp Pulse Resp B/P (MAP) Pulse Ox O2 Delivery O2 Flow Rate FiO2 08/23/17 08:00 62 62 63 08/23/17 08:00 96.4 62 20 152/78 97 08/23/17 08:00 92 08/23/17 04:00 98.1 69 20 107/57 96 08/23/17 04:00 69 62 08/23/17 03:51 70 08/23/17 00:00 80 08/23/17 00:00 97.5 64 18 125/67 98 08/22/17 20:52 80 08/22/17 20:00 99.0 81 20 101/55 97 08/22/17 16:01 115/59 113/64 08/22/17 16:00 97.5 78 20 115/59 95 Room Air 08/22/17 16:00 65 08/22/17 12:00 97.9 96 20 117/64 83 Room Air 88 Intake and Output 08/23/17 08/24/17 19:00 07:00 Output Total 2000 ml Balance -2000 ml Output Urine Total 2000 ml Laboratory Tests 08/23/17 03:50: White Blood Count 6.3, Red Blood Count 2.41L, Hemoglobin 7.4L, Hematocrit 22.3L , Mean Corpuscular Volume 92, Mean Corpuscular Hemoglobin 30.7, Mean Corpuscular Hemoglobin Concent 33.3, Red Cell Distribution Width 15.1H, Platelet Count 333, Mean Platelet Volume 5.5L, Neutrophils (%) (Auto) , Lymphocytes (%) (Auto) , Monocytes (%) (Auto) , Eosinophils (%) (Auto) , Basophils (%) (Auto) , Sodium Level 140, Potassium Level 3.6, Chloride Level 106 , Carbon Dioxide Level 29, Anion Gap 6, Blood Urea Nitrogen 24H, Creatinine 0.9 , Estimat Glomerular Filtration Rate , Glucose Level 163H, Hemoglobin A1c 6.2H, Calcium Level 8.2L, Iron Level 19L, Total Iron Binding Capacity 266, Percent Iron Saturation 7L, Unsaturated Iron Binding 247, Total Bilirubin 0.2, Aspartate Amino Transf (AST/SGOT) 14L, Alanine Aminotransferase (ALT/SGPT) 27, Alkaline Phosphatase 61, Total Protein 5.5L, Albumin 2.6L, Globulin 2.9, Albumin /Globulin Ratio 0.9L Height (Feet): 6 Height (Inches): 0.00 Weight (Pounds): 164 Objective Cachechtic Cv RR Lungs CTA Abd SNT. BS + E No CCE HUYEN PARKER Aug 23, 2017 11:20
[2017-08-23 12:00] VITALS: BP 110/62
[2017-08-23] MEDS: Potassium Chloride 30 MEQ in 1/2 NS 1000ml 1,000 ML IV SCH (14:19)
[2017-08-23 15:27] LABS: BASOPHILS % (AUTO) 1.5 % (0.0-2.0); EOSINOPHILS % (AUTO) 2.1 % (0.0-3.0); LYMPHOCYTES % (AUTO) 17.5 % (20.0-45.0); MEAN CORPUSCULAR HEMOGLOBIN 30.7 PG (27.0-31.0); MEAN CORPUSCULAR HGB CONC 32.3 G/DL (32.0-36.0); MEAN CORPUSCULAR VOLUME 95 FL (80-99); MEAN PLATELET VOLUME 5.5 FL (6.5-10.1); MONOCYTES % (AUTO) 10.6 % (1.0-10.0); NEUTROPHILS % (AUTO) 68.4 % (45.0-75.0); PLATELET COUNT 367 K/UL (150-450); RED BLOOD COUNT 2.71 M/UL (4.70-6.10); RED CELL DISTRIBUTION WIDTH 15.1 % (11.6-14.8)
[2017-08-23 16:00] VITALS: BP 125/65
--- NOTE | 2017-08-23 18:48 | General Progress Note ---
Assessment/Plan Assessment/Plan Assessment - UGIB - 2 cm Anastomotic GJ ulcer - Anemia - UC, on mesalamine - h/o transient a fib - resolved with Amio - s/p CHUCHO gastric bypass Recommendations - continue Mesalamine for UC - DVT prophylaxis - transfuse PRN - po as tolerated - PPI BID and Carafate QID - follow CBC Subjective Allergies: Coded Allergies: DICLOXACILLIN (Verified Allergy, Unknown, 08/21/17) Gluten Flour (Verified Allergy, Unknown, 08/21/17) LACTOSE (Verified Allergy, Unknown, 08/21/17) Subjective feels OK d/w pt re results d/w RN - advised re need for DVT prophylaxis Objective Last 24 Hour Vital Signs Date Time Temp Pulse Resp B/P (MAP) Pulse Ox O2 Delivery O2 Flow Rate FiO2 08/23/17 16:00 97.9 69 125/65 08/23/17 12:00 73 08/23/17 12:00 99.0 76 18 110/62 97 08/23/17 08:01 92 08/23/17 08:00 62 62 63 08/23/17 08:00 96.4 62 20 152/78 97 08/23/17 04:00 98.1 69 20 107/57 96 08/23/17 04:00 69 62 08/23/17 03:51 70 08/23/17 00:00 80 08/23/17 00:00 97.5 64 18 125/67 98 08/22/17 20:52 80 08/22/17 20:00 99.0 81 20 101/55 97 Intake and Output 08/23/17 08/24/17 19:00 07:00 Output Total 2000 ml Balance -2000 ml Output Urine Total 2000 ml # Bowel Movements 1 Laboratory Tests 08/23/17 03:50: White Blood Count 6.3, Red Blood Count 2.41L, Hemoglobin 7.4L, Hematocrit 22.3L , Mean Corpuscular Volume 92, Mean Corpuscular Hemoglobin 30.7, Mean Corpuscular Hemoglobin Concent 33.3, Red Cell Distribution Width 15.1H, Platelet Count 333, Mean Platelet Volume 5.5L, Neutrophils (%) (Auto) , Lymphocytes (%) (Auto) , Monocytes (%) (Auto) , Eosinophils (%) (Auto) , Basophils (%) (Auto) , Sodium Level 140, Potassium Level 3.6, Chloride Level 106 , Carbon Dioxide Level 29, Anion Gap 6, Blood Urea Nitrogen 24H, Creatinine 0.9 , Estimat Glomerular Filtration Rate , Glucose Level 163H, Hemoglobin A1c 6.2H, Calcium Level 8.2L, Iron Level 19L, Total Iron Binding Capacity 266, Percent Iron Saturation 7L, Unsaturated Iron Binding 247, Total Bilirubin 0.2, Aspartate Amino Transf (AST/SGOT) 14L, Alanine Aminotransferase (ALT/SGPT) 27, Alkaline Phosphatase 61, Total Protein 5.5L, Albumin 2.6L, Globulin 2.9, Albumin /Globulin Ratio 0.9L 08/23/17 14:30: White Blood Count 7.0, Red Blood Count 2.71L, Hemoglobin 8.3L, Hematocrit 25.8L , Mean Corpuscular Volume 95, Mean Corpuscular Hemoglobin 30.7, Mean Corpuscular Hemoglobin Concent 32.3, Red Cell Distribution Width 15.1H, Platelet Count 367, Mean Platelet Volume 5.5L, Neutrophils (%) (Auto) 68.4, Lymphocytes (%) (Auto) 17.5L, Monocytes (%) (Auto) 10.6H, Eosinophils (%) (Auto ) 2.1, Basophils (%) (Auto) 1.5 Height (Feet): 6 Height (Inches): 0.00 Weight (Pounds): 164 Objective WDWN WM NCAT supple CTA RRR Soft ND NT no edema, (R) hip wound OK non focal IRVIN CHAUDHARI Aug 23, 2017 18:48
[2017-08-23 19:48] VITALS: BP 116/56
[2017-08-23] MEDS ORDERED: Iron Sucrose 100 MG in NS 55 ML IV SCH (21:00)
[2017-08-23] MEDS: Heparin 5000 units/ml inj SUBQ SCH (21:20)
[2017-08-23] MEDS: Sucralfate 1gm tab ORAL SCH (21:22)
[2017-08-23] MEDS: Iron Sucrose 100 MG in NS 55 ML IVPB SCH (21:22)
[2017-08-24] VITALS: BP 121/54
--- NOTE | 2017-08-24 02:16 | Procedure Note ---
DATE OF PROCEDURE: 08/22/2017 GASTROENTEROLOGY PROCEDURE REPORT PROCEDURE: Upper gastrointestinal endoscopy with enteroscopy and biopsy. SURGEON: Cornelio Roldan M.D. ANESTHESIA: Please see the separate anesthesiologist notes for details. PRE-ENDOSCOPIC DIAGNOSIS: Upper gastrointestinal bleeding. POST-ENDOSCOPIC DIAGNOSES: 1. Status post Denny-en-Y gastric bypass surgery as expected. 2. A 7-cm gastric pouch. 3. A 2-cm gastrojejunal anastomosis diameter. 4. Postanastomotic gastrojejunal anastomotic ulcer measuring approximately 2 cm in width and approximately 0.25 cm in depth. There was no active bleeding. DESCRIPTION OF PROCEDURE: The procedure its risks, indications, alternatives, and possible complications were explained to the patient and informed consent was obtained. The patient was then sedated in the left lateral decubitus position and a diagnostic upper endoscope was introduced through the oropharynx and advanced to the small bowel. The endoscope was then gradually withdrawn and the mucosa examined carefully. Findings were as listed above. Biopsies of the gastric pouch were sent to Pathology for review. The endoscope was removed and the patient was sent to Recovery in good condition. COMPLICATIONS: None. ASSESSMENT: This patient has a 2-cm ulcer at the gastrojejunal junction on the jejunal side. There was no active bleeding, but the patient will require aggressive medical intervention to deal with ulceration. He should be placed on Carafate 4 times a day as well as proton pump inhibitor twice a day. He would likely benefit from a followup endoscopy in a few months to document healing. An alternative to aspirin should be found for his postsurgical deep vein thrombosis prophylaxis. RECOMMENDATIONS: Per above discussion and per orders written in the chart. Thank you for asking me to participate in the care of this patient. Cornelio Roldan M.D. DR: CARLEE JOB#: [id number] CC:
[2017-08-24] MEDS: Zolpidem 5mg tab ORAL PRN ×2 (02:49→23:09)
[2017-08-24 04:00] VITALS: BP 124/60
[2017-08-24] MEDS: Potassium Chloride 30 MEQ in 1/2 NS 1000ml 1,000 ML IV SCH ×2 (04:00→12:01)
[2017-08-24 06:02] LABS: MEAN CORPUSCULAR HEMOGLOBIN 30.3 PG (27.0-31.0); MEAN CORPUSCULAR HGB CONC 32.6 G/DL (32.0-36.0); MEAN CORPUSCULAR VOLUME 93 FL (80-99); MEAN PLATELET VOLUME 5.2 FL (6.5-10.1); PLATELET COUNT 327 K/UL (150-450); RED BLOOD COUNT 2.57 M/UL (4.70-6.10); RED CELL DISTRIBUTION WIDTH 14.9 % (11.6-14.8)
[2017-08-24 06:22] LABS: ANION GAP 4 mmol/L (5-15); CALCIUM 8.4 MG/DL (8.5-10.1); CARBON DIOXIDE 29 MMOL/L (21-32); CHLORIDE 108 MMOL/L (98-107); CREATININE 0.7 MG/DL (0.55-1.30); MAGNESIUM 1.9 MG/DL (1.8-2.4); SODIUM 141 MMOL/L (136-145)
[2017-08-24] MEDS: NovoLOG Insulin Flexpen SUBQ SCH ×4 (06:35→20:38)
[2017-08-24 08:00] VITALS: BP 108/67
[2017-08-24] MEDS: Mesalamine 400mg cap ORAL SCH ×3 (08:32→17:20)
[2017-08-24] MEDS: BuPROPion 75mg Tab ORAL SCH ×3 (08:32→17:20)
[2017-08-24] MEDS: Sucralfate 1gm tab ORAL SCH ×4 (08:33→20:36)
[2017-08-24] MEDS: Heparin 5000 units/ml inj SUBQ SCH ×2 (09:00→20:02)
[2017-08-24] MEDS: Docusate 250mg cap ORAL SCH ×2 (09:00→18:00)
--- NOTE | 2017-08-24 09:12 | General Progress Note ---
Assessment/Plan Assessment/Plan Severe Anemia multifactorial - For IV Iron Orthosthatic BP changes -use elastic stockings See orders Still has melena reflecting old bleed. To [facility]> Subjective Allergies: Coded Allergies: DICLOXACILLIN (Verified Allergy, Unknown, 08/21/17) Gluten Flour (Verified Allergy, Unknown, 08/21/17) LACTOSE (Verified Allergy, Unknown, 08/21/17) Subjective Very Anxious. Still dizzy Objective Last 24 Hour Vital Signs Date Time Temp Pulse Resp B/P (MAP) Pulse Ox O2 Delivery O2 Flow Rate FiO2 08/24/17 08:00 97.7 76 20 108/67 98 Room Air 08/24/17 04:00 96.6 70 19 124/60 97 Room Air 08/24/17 04:00 74 08/24/17 00:00 74 08/24/17 00:00 98.0 86 19 121/54 97 Room Air 08/23/17 22:22 77 85 96 08/23/17 20:00 86 08/23/17 19:48 98.7 84 19 116/56 96 Room Air 08/23/17 16:00 97.9 69 125/65 08/23/17 12:00 73 08/23/17 12:00 99.0 76 18 110/62 97 Intake and Output 08/24/17 08/25/17 19:00 07:00 Intake Total 50 ml Balance 50 ml IV Total 50 ml # Bowel Movements 1 Laboratory Tests 08/23/17 14:30: White Blood Count 7.0, Red Blood Count 2.71L, Hemoglobin 8.3L, Hematocrit 25.8L , Mean Corpuscular Volume 95, Mean Corpuscular Hemoglobin 30.7, Mean Corpuscular Hemoglobin Concent 32.3, Red Cell Distribution Width 15.1H, Platelet Count 367, Mean Platelet Volume 5.5L, Neutrophils (%) (Auto) 68.4, Lymphocytes (%) (Auto) 17.5L, Monocytes (%) (Auto) 10.6H, Eosinophils (%) (Auto ) 2.1, Basophils (%) (Auto) 1.5 08/24/17 05:05: White Blood Count 6.0, Red Blood Count 2.57L, Hemoglobin 7.8L, Hematocrit 24.0L , Mean Corpuscular Volume 93, Mean Corpuscular Hemoglobin 30.3, Mean Corpuscular Hemoglobin Concent 32.6, Red Cell Distribution Width 14.9H, Platelet Count 327, Mean Platelet Volume 5.2L, Neutrophils (%) (Auto) , Lymphocytes (%) (Auto) , Monocytes (%) (Auto) , Eosinophils (%) (Auto) , Basophils (%) (Auto) , Sodium Level 141, Potassium Level 4.0, Chloride Level 108H, Carbon Dioxide Level 29, Anion Gap 4L, Blood Urea Nitrogen 16, Creatinine 0.7, Estimat Glomerular Filtration Rate , Glucose Level 147H, Calcium Level 8.4L , Magnesium Level 1.9 Height (Feet): 6 Height (Inches): 0.00 Weight (Pounds): 164 Objective Cachechtic Cv RR Lungs CTA Abd SNT. BS + E No ASHLEYE HUYEN PARKER Aug 24, 2017 09:12
[2017-08-24 12:00] VITALS: BP 111/60
[2017-08-24 16:00] VITALS: BP 101/65
[2017-08-24 20:00] VITALS: BP 128/62
[2017-08-24] MEDS: Iron Sucrose 100 MG in NS 55 ML IVPB SCH (20:37)
--- NOTE | 2017-08-24 22:38 | General Progress Note ---
Assessment/Plan Assessment/Plan Assessment - UGIB - 2 cm Anastomotic GJ ulcer - Anemia - stable - UC, on mesalamine - h/o transient a fib - resolved with Amio - s/p CHUCHO gastric bypass Recommendations - continue Mesalamine for UC - DVT prophylaxis - transfuse PRN - po as tolerated - PPI BID and Carafate QID - follow CBC - dc planning Subjective Allergies: Coded Allergies: DICLOXACILLIN (Verified Allergy, Unknown, 08/21/17) Gluten Flour (Verified Allergy, Unknown, 08/21/17) LACTOSE (Verified Allergy, Unknown, 08/21/17) Subjective feels OK d/w pt re results tolerating PO stools dark Objective Last 24 Hour Vital Signs Date Time Temp Pulse Resp B/P (MAP) Pulse Ox O2 Delivery O2 Flow Rate FiO2 08/24/17 20:00 99.2 82 20 128/62 99 Room Air 08/24/17 20:00 84 08/24/17 16:00 97.7 84 21 101/65 100 Room Air 08/24/17 15:20 89 08/24/17 12:00 97.8 70 20 111/60 100 Room Air 08/24/17 11:57 77 08/24/17 08:05 90 08/24/17 08:00 97.7 76 20 108/67 98 Room Air 08/24/17 04:00 96.6 70 19 124/60 97 Room Air 08/24/17 04:00 74 08/24/17 00:00 74 08/24/17 00:00 98.0 86 19 121/54 97 Room Air Intake and Output 08/23/17 08/24/17 19:00 07:00 Intake Total 1010 ml 1010 ml Output Total 3000 ml 1900 ml Balance -1990 ml -890 ml Intake Oral 960 ml 350 ml IV Total 50 ml 660 ml Output Urine Total 3000 ml 1900 ml # Voids 3 4 # Bowel Movements 1 Laboratory Tests 08/24/17 05:05: White Blood Count 6.0, Red Blood Count 2.57L, Hemoglobin 7.8L, Hematocrit 24.0L , Mean Corpuscular Volume 93, Mean Corpuscular Hemoglobin 30.3, Mean Corpuscular Hemoglobin Concent 32.6, Red Cell Distribution Width 14.9H, Platelet Count 327, Mean Platelet Volume 5.2L, Neutrophils (%) (Auto) , Lymphocytes (%) (Auto) , Monocytes (%) (Auto) , Eosinophils (%) (Auto) , Basophils (%) (Auto) , Sodium Level 141, Potassium Level 4.0, Chloride Level 108H, Carbon Dioxide Level 29, Anion Gap 4L, Blood Urea Nitrogen 16, Creatinine 0.7, Estimat Glomerular Filtration Rate , Glucose Level 147H, Calcium Level 8.4L , Magnesium Level 1.9 Height (Feet): 6 Height (Inches): 0.00 Weight (Pounds): 164 Objective WDWN WM NCAT supple CTA RRR Soft ND NT no edema, (R) hip wound OK non focal IRVIN CHAUDHARI Aug 24, 2017 22:38
[2017-08-25] VITALS: BP 129/60
[2017-08-25 04:00] VITALS: BP 120/58
[2017-08-25 04:41] LABS: MEAN CORPUSCULAR HEMOGLOBIN 29.8 PG (27.0-31.0); MEAN CORPUSCULAR VOLUME 93 FL (80-99); MEAN PLATELET VOLUME 5.4 FL (6.5-10.1); PLATELET COUNT 344 K/UL (150-450); RED BLOOD COUNT 2.64 M/UL (4.70-6.10); WHITE BLOOD COUNT 5.5 K/UL (4.8-10.8)
[2017-08-25 05:14] LABS: ANION GAP 7 mmol/L (5-15); CALCIUM 8.8 MG/DL (8.5-10.1); CARBON DIOXIDE 29 MMOL/L (21-32); CHLORIDE 107 MMOL/L (98-107); CREATININE 0.8 MG/DL (0.55-1.30); MAGNESIUM 1.9 MG/DL (1.8-2.4); SODIUM 142 MMOL/L (136-145)
[2017-08-25] MEDS: Potassium Chloride 30 MEQ in 1/2 NS 1000ml 1,000 ML IV SCH (05:40)
[2017-08-25] MEDS: NovoLOG Insulin Flexpen SUBQ SCH ×3 (06:24→17:21)
[2017-08-25 08:00] VITALS: BP 136/69
--- NOTE | 2017-08-25 08:53 | General Progress Note ---
Assessment/Plan Assessment/Plan Assessment - UGIB - 2 cm Anastomotic GJ ulcer - Anemia - stable - UC, on mesalamine - h/o transient a fib - resolved with Amio - s/p CHUCOH gastric bypass Recommendations - continue Mesalamine for UC - DVT prophylaxis - po as tolerated - PPI BID and Carafate QID -- for discharge - follow CBC - dc planning Subjective Allergies: Coded Allergies: DICLOXACILLIN (Verified Allergy, Unknown, 08/21/17) Gluten Flour (Verified Allergy, Unknown, 08/21/17) LACTOSE (Verified Allergy, Unknown, 08/21/17) Subjective feels OK d/w pt re results tolerating PO stools dark H&H stable Objective Last 24 Hour Vital Signs Date Time Temp Pulse Resp B/P (MAP) Pulse Ox O2 Delivery O2 Flow Rate FiO2 08/25/17 08:00 98.2 82 22 136/69 99 Room Air 08/25/17 04:00 67 08/25/17 04:00 98.3 75 20 120/58 98 Room Air 08/25/17 00:00 75 08/25/17 00:00 98.8 75 20 129/60 98 Room Air 08/24/17 20:00 99.2 82 20 128/62 99 Room Air 08/24/17 20:00 84 08/24/17 16:00 97.7 84 21 101/65 100 Room Air 08/24/17 15:20 89 08/24/17 12:00 97.8 70 20 111/60 100 Room Air 08/24/17 11:57 77 Intake and Output 08/24/17 08/25/17 19:00 07:00 Intake Total 870 ml 809.5 ml Output Total 1600 ml 1850 ml Balance -730 ml -1040.5 ml Intake Oral 320 ml 150 ml IV Total 550 ml 659.5 ml Output Urine Total 1600 ml 1850 ml # Voids 5 4 # Bowel Movements 7 Laboratory Tests 08/25/17 03:35: White Blood Count 5.5, Red Blood Count 2.64L, Hemoglobin 7.9L, Hematocrit 24.6L , Mean Corpuscular Volume 93, Mean Corpuscular Hemoglobin 29.8, Mean Corpuscular Hemoglobin Concent 32.0, Red Cell Distribution Width 15.0H, Platelet Count 344, Mean Platelet Volume 5.4L, Neutrophils (%) (Auto) , Lymphocytes (%) (Auto) , Monocytes (%) (Auto) , Eosinophils (%) (Auto) , Basophils (%) (Auto) , Sodium Level 142, Potassium Level 4.0, Chloride Level 107 , Carbon Dioxide Level 29, Anion Gap 7, Blood Urea Nitrogen 18, Creatinine 0.8, Estimat Glomerular Filtration Rate , Glucose Level 138H, Calcium Level 8.8, Magnesium Level 1.9 Height (Feet): 6 Height (Inches): 0.00 Weight (Pounds): 164 Objective WDWN WM NCAT supple CTA RRR Soft ND NT no edema, (R) hip wound OK non focal IRVIN CHAUDHARI Aug 25, 2017 08:53
[2017-08-25] MEDS: Docusate 250mg cap ORAL SCH ×2 (09:00→18:00)
[2017-08-25] MEDS: Heparin 5000 units/ml inj SUBQ SCH (09:00)
[2017-08-25] MEDS: BuPROPion 75mg Tab ORAL SCH ×3 (09:49→17:13)
[2017-08-25] MEDS: Sucralfate 1gm tab ORAL SCH ×3 (09:49→17:13)
[2017-08-25] MEDS: Mesalamine 400mg cap ORAL SCH ×3 (09:49→17:13)
[2017-08-25] MEDS: Amiodarone 200mg tab ORAL SCH (09:53)
[2017-08-25 12:00] VITALS: BP 112/57
--- NOTE | 2017-08-25 15:02 | General Progress Note ---
Assessment/Plan Assessment/Plan Severe Anemia multifactorial - For IV Iron Orthosthatic BP changes -use elastic stockings See orders Still has melena reflecting old bleed. To get IV Iron +Mg then DC home. Subjective Allergies: Coded Allergies: DICLOXACILLIN (Verified Allergy, Unknown, 08/21/17) Gluten Flour (Verified Allergy, Unknown, 08/21/17) LACTOSE (Verified Allergy, Unknown, 08/21/17) Subjective Very Anxious. Still dizzy but better. Objective Last 24 Hour Vital Signs Date Time Temp Pulse Resp B/P (MAP) Pulse Ox O2 Delivery O2 Flow Rate FiO2 08/25/17 12:00 97.6 80 21 112/57 99 Room Air 08/25/17 11:43 80 08/25/17 08:00 98.2 82 22 136/69 99 Room Air 08/25/17 07:57 82 08/25/17 04:00 67 08/25/17 04:00 98.3 75 20 120/58 98 Room Air 08/25/17 00:00 75 08/25/17 00:00 98.8 75 20 129/60 98 Room Air 08/24/17 20:00 99.2 82 20 128/62 99 Room Air 08/24/17 20:00 84 08/24/17 16:00 97.7 84 21 101/65 100 Room Air 08/24/17 15:20 89 Intake and Output 08/24/17 08/25/17 19:00 07:00 Intake Total 870 ml 809.5 ml Output Total 1600 ml 1850 ml Balance -730 ml -1040.5 ml Intake Oral 320 ml 150 ml IV Total 550 ml 659.5 ml Output Urine Total 1600 ml 1850 ml # Voids 5 4 # Bowel Movements 7 Laboratory Tests 08/25/17 03:35: White Blood Count 5.5, Red Blood Count 2.64L, Hemoglobin 7.9L, Hematocrit 24.6L , Mean Corpuscular Volume 93, Mean Corpuscular Hemoglobin 29.8, Mean Corpuscular Hemoglobin Concent 32.0, Red Cell Distribution Width 15.0H, Platelet Count 344, Mean Platelet Volume 5.4L, Neutrophils (%) (Auto) , Lymphocytes (%) (Auto) , Monocytes (%) (Auto) , Eosinophils (%) (Auto) , Basophils (%) (Auto) , Sodium Level 142, Potassium Level 4.0, Chloride Level 107 , Carbon Dioxide Level 29, Anion Gap 7, Blood Urea Nitrogen 18, Creatinine 0.8, Estimat Glomerular Filtration Rate , Glucose Level 138H, Calcium Level 8.8, Magnesium Level 1.9 Height (Feet): 6 Height (Inches): 0.00 Weight (Pounds): 164 Objective Cachechtic Cv RR Lungs CTA Abd SNT. BS + E No CCE HUYEN PARKER Aug 25, 2017 15:02
[2017-08-25] MEDS ORDERED: NS 500ML ONE ×2 (15:41→16:00)
[2017-08-25] MEDS ORDERED: D5 1/2NS 1000ml IV ONE (15:41)
[2017-08-25] MEDS ORDERED: Tubing IV Secondary IV ONE ×3 (15:41→18:13)
[2017-08-25 16:00] VITALS: BP 122/70
[2017-08-25] MEDS: Iron Sucrose 100 MG in NS 55 ML IVPB SCH (17:13)
[2017-08-25] MEDS ORDERED: NS 275ml ONE (18:13)
--- NOTE | 2017-08-26 09:37 | Discharge Summary ---
Discharge Summary Hospital Course Date of Admission Aug 21, 2017 at 17:00 Date of Discharge Aug 25, 2017 at 18:14 Admitting Diagnosis gen weakness HPI Tom Cheng is a 71 year old male who was admitted on Aug 21, 2017 at 17: 00 for General Weakeness Hospital Course [id number] Discharge Discharge Disposition Patient was discharged to Home (01) Discharge Diagnoses: Gabby Giordano NP Aug 26, 2017 09:37
--- NOTE | 2017-08-27 00:30 | Cardiology Report ---
APPROVED REPORT EKG Measurement Heart [id number] VA [id number] Normal sinus rhythm Normal ECG
--- NOTE | 2017-08-27 02:45 | Discharge Summary 2 SIG ---
DATE OF ADMISSION: 08/21/2017 DATE OF DISCHARGE: 08/25/2017 PRESSED OR BLOWN GLASS WORKER: Cornelio Roldan M.D. BRIEF HOSPITAL COURSE: The patient is a 71-year-old male, who had a recent hip surgery at [facility]. He was also diagnosed with colitis and had transient atrial fibrillation, which resolved. He presented to ED for evaluation of GI bleed. He was noted to have melena and has recently started taking aspirin. He has a past medical history significant for atrial fibrillation, prostatic CA, gastric bypass and ulcerative colitis. On evaluation at ED, hemoglobin was 5.5 and hematocrit was 17. Chest x-ray done showed no acute findings. Hip CT showed no evidence of acute fracture or significant malalignment. He was then admitted for GI bleed. Dr. Roldan was consulted. Aspirin was placed on hold. He was placed on NPO and was started on IV fluids and proton pump inhibitors. He underwent an upper GI endoscopy with hysteroscopy and biopsy on 08/22/[address] Roldan. Findings showed a 7 cm gastric pouch status post Denny-en-Y gastric bypass surgery as expected; a 2 cm gastrojejunal anastomotic ulcer. There was no active bleeding noted. The patient will require aggressive medical intervention to deal with ulcers. He was placed on Carafate 4 times a day as well as proton pump inhibitor twice a day and would benefit from a followup endoscopy in a few months to document healing. He was given 2 units of packed RBC blood transfusion and had positive orthostasis. He was placed on compression stockings. He was given IV iron. He was eventually discharged home. FINAL DIAGNOSES: 1. Acute gastrointestinal bleed. 2. Severe anemia. 3. Orthostatic blood pressure. 4. A 2 cm anastomotic gastrojejunal ulcer. 5. Acute Anemia requiring blood transfusion. 6. Ulcerative colitis. 7. History of transient atrial fibrillation. 8. History of status post Denny-en-Y gastric bypass. DISPOSITION: The patient was discharged home. DISCHARGE MEDICATIONS: Refer to medication list. Continue with mesalamine and amiodarone. DISCHARGE INSTRUCTIONS: Follow up with PMD in a week. Follow up with GI for a repeat endoscopy to document healing. Gray Quesada M.D. I have been assigned to dictate discharge summary on this account and I was not involved in the patient's management. Gabby Giordano N.P. DR: DOYLE JOB#: [id number] CC: GARTH
--- NOTE | 2017-09-01 00:08 | Diagnostic Imaging Report ---
APPROVED REPORT CPT Code: 13532 Present Symptoms Comments: R/O DVT BILATERAL: Imaging reveals a patent deep venous system bilaterally. There is no evidence of thrombus within the femoral, popliteal or tibial segments. The greater saphenous veins are also within normal limits. Doppler indicates normal spontaneous flow within these segments.
--- NOTE | 2017-09-01 00:08 | Diagnostic Imaging Report ---
APPROVED REPORT CPT Code: 09942 Present Symptoms Comments: R/O DVT BILATERAL UPPER EXTREMITY: Imaging reveals patency of the internal jugular, subclavian, axillary and brachial veins. The cephalic and basilic veins are also patent. Doppler indicates normal spontaneous flow within these venous segments, bilaterally.
== END 2017-08-25 18:14 | disposition home or self-care (01) | DRG 378 ==
LOC: EDBD 13:18 → EMR 13:30 → 2W 17:00 → EDBEDREQ 18:43
PROC: 0DB68ZX Excision of Stomach, Via Natural or Artificial Opening Endoscopic, Diagnostic (ICD-10-PCS; 2017-08-22)
PROC: 0DJD8ZZ Inspection of Lower Intestinal Tract, Via Natural or Artificial Opening Endoscopic (ICD-10-PCS; 2017-08-22)
PROC: 30233N1 Transfusion of Nonautologous Red Blood Cells into Peripheral Vein, Percutaneous Approach (ICD-10-PCS; principal; 2017-08-22 07:27)
DX: K92.2 Gastrointestinal hemorrhage, unspecified (principal); K51.90 Ulcerative colitis, unspecified, without complications; K28.9 Gastrojejunal ulcer, unspecified as acute or chronic, without hemorrhage or perforation; D62 Acute posthemorrhagic anemia; Z96.641 Presence of right artificial hip joint; I95.1 Orthostatic hypotension; Z98.84 Bariatric surgery status; Z85.46 Personal history of malignant neoplasm of prostate; Z92.3 Personal history of irradiation; G47.33 Obstructive sleep apnea (adult) (pediatric); I10 Essential (primary) hypertension
CPT/HCPCS: 36415; 36430; 71010; 80048; 80053; 81003; 82728; 82962; 83036; 83540; 83550; 83690; 83735; 83880; 84484; 85007; 85025; 85610; 85730; 86850; 86900; 86901; 86920; 87081; 93005; 93970; 94003; 94150; J1815

== ENCOUNTER 2018-07-05 09:36 | Outpatient (CLI) | payer MEDICARE, BC ==
[~2018-07-05 09:36] MED LIST: ALREX5 ML BOTH EYES; AMIODARONE HCL200 MG ORAL; ANDROGEL75 G2 TD; APRISO0.375 GM PO; ASPIR 8181 MG ORAL; BEPREVE10 ML BOTH EYES; BIOTIN5000 MCG PO; BUPROPION HCL75 MG PO; CALCIUM500 M2 PO; ECONAZOLE NITRA30 GM TP; FORMULA TP; GERI-HYDROLAC140 GM TP; JARDIANCE 25 MG TAB PO; JARDIANCE PO; JUBLIA4 ML TP; METFORMIN HCL850 M1 ORAL; RESTASIS1 EACH BOTH EYES; TERBINAFINE HC250 MG PO; TRAMADOL HCL50 MG ORAL; ZOLPIDEM TARTRA10 MG ORAL
--- NOTE | 2018-07-05 11:21 | Diagnostic Imaging Report ---
Indication: Right upper quadrant mass. History of gastric bypass surgery, diabetes, prostate carcinoma Technique: Paez-scale and duplex images of the upper abdomen were obtained. Doppler interrogation of the hepatic vessels Comparison: none Findings: Corresponding to the palpable lump in the right upper quadrant, there is a 12 x 6 x 7 mm mixed echogenicity mostly hypoechoic lesion which appears to be within the subcutaneous fat. Gallbladder is unremarkable, without stones, wall thickening, nor pericholecystic fluid. Sonographic Coley's sign is negative. Common bile duct measures 4 mm in diameter. No intrahepatic biliary ductal dilatation. Liver demonstrates coarsened echogenicity, no focal abnormality. Portal vein and hepatic veins are patent on Doppler imaging. Pancreas is unremarkable. Spleen is unremarkable. Left kidney measures 11.8 cm in length. Right kidney measures 9.5 cm length. Both kidneys demonstrate normal echogenicity. There is mild fullness of the right renal pelvis and collecting system. This persists after voiding. The left kidney demonstrates parapelvic cysts. Bilateral ureteral jets are noted Prevoid bladder volume is 181 mL. Postvoid bladder volume is 32 mL. The posterior bladder wall is somewhat thickened. Note the patient has history of nuclear seed treatment of prostate carcinoma.. Non-aneurysmal abdominal aorta . Prostate volume 34 mL. It is heterogeneous, demonstrates hyperechoic areas which could represent radiation seeds. Impression: 12 x 6 x 7 mm mixed echogenicity hypoechoic lesion in the subcutaneous fat of the right upper quadrant, corresponding to palpable abnormality. Sonographic appearance is nonspecific. Coarsened hepatic echogenicity, could indicate hepatocellular disease Mild fullness of the right renal pelvis and collecting system, significance/etiology uncertain 31 mL postvoid bladder volume Thickened posterior bladder wall. This could be related to history of prior prostate carcinoma radiation therapy
== END 2018-07-05 11:36 | disposition home or self-care (01) ==
LOC: ULS 09:36
DX: R19.01 Right upper quadrant abdominal swelling, mass and lump (principal); E11.9 Type 2 diabetes mellitus without complications; Z85.46 Personal history of malignant neoplasm of prostate
CPT/HCPCS: 76700